=== PATIENT | female | born 1990 | race Caucasian/White ===

== ENCOUNTER 2017-04-25 00:25 | Emergency (ER) | payer OTHER ==
[2017-04-25 01:51] VITALS: BP 125/76
== END 2017-04-25 01:51 | disposition home or self-care (01) ==
LOC: ED 00:25
DX: O26.891 Other specified pregnancy related conditions, first trimester (principal); K04.7 Periapical abscess without sinus; Z3A.01 Less than 8 weeks gestation of pregnancy